=== PATIENT | female | born 1960 | race Two or more races ===

== ENCOUNTER → 2017-01-13 | Outpatient (CLI) | payer OTHER ==
--- NOTE | ~2017-01-13 | MY29 ---
[facility] A Service of [facility] RADIOLOGY TEXT RESULTS PATIENT: DAISY SHAH LOCATION: [facility] : 60 UNIT #: [id number] AGE: [address]: SAROJ HERRERA APRN SEX: F ORDER DR: [id number] [facility] [address] [place], [place] [address] [id number] MR#: [id number] Acc #: [id number] NAME: DAISY SHAH : 1960 SEX: F STUDY DATE/TIME: 01/13/2017 17:04 UNIT: [facility] ROOM: STUDY DESCRIPTION: MY [facility] SCREENING W/ CAD BILAT Attending Physician: Tom Herrera M.D. Referring Physician: Tom Herrera M.D. Ordering Physician: Tom Herrera M.D. Primary Care Physician: Tom Herrera M.D. MEDICAL IMAGING REPORT This report is preliminary unless electronic signature is present EXAM Bilateral digital screening mammogram with CAD. INDICATION Breast cancer screening. 56-year-old asymptomatic female. No personal or family history of breast cancer. COMPARISON January 08, 2016, November 20, 2014. FINDINGS There are scattered fibroglandular tissues. No suspicious findings are present. IMPRESSION No mammographic evidence of malignancy. Annual screening mammography and clinical breast exam are recommended. A result letter will be sent to the patient. Patients over the age of 40 are entered into a reminder system with target due date for the next mammogram. BIRADS: 1 Negative Dictated by... Jordan Hawthorne M.D. THIS IS AN ELECTRONICALLY VERIFIED REPORT Jordan Hawthorne M.D. at 01/19/2017 9:59 PM SHARI/aliza [facility] A Service of [facility] & [facility] RADIOLOGY TEXT RESULTS PATIENT: DAISY SHAH LOCATION: [facility] : 60 UNIT #: [id number] AGE: [address]: SAROJ HERRERA APRN SEX: F ORDER DR: TD: 01/16/2017 14:03 JOB #: [id number] MEDICAL IMAGING REPORT Page 1 of 1 COPY
== END | disposition home or self-care (01) ==
LOC: CWCC 16:44
DX: Z12.31 Encounter for screening mammogram for malignant neoplasm of breast (principal)
CPT/HCPCS: G0202